=== PATIENT | female | born 1945 | race Caucasian/White ===

== ENCOUNTER 2018-09-10 18:49 | Emergency (ER) | payer MEDICARE, OTHER ==
[2018-09-10 19:10] VITALS: BP 118/89; PULSE 94; TEMP 98.1; BMI 19.7
[2018-09-10 20:45] LABS: EOS % 2.1 % (0-4.5); HEMATOCRIT 40.1 % (32.4-45.2); HEMOGLOBIN 13.4 GM/dl (10.7-15.3); LYMPH % 25.8 % (8-40); MCH 33.3 pg (25.7-33.7); MCHC 33.4 g/dl (32.0-36.0); MEAN CELL VOLUME 99.6 fl (80-96); MEAN PLT VOLUME 7.7 fl (7.5-11.1); NEUT % 64.1 % (42.8-82.8); PLATELET COUNT 290 K/MM3 (134-434); RBC 4.03 M/mm3 (3.60-5.2); RDW 12.7 % (11.6-15.6); WHITE BLOOD COUNT 7.7 K/mm3 (4.0-10.8)
[2018-09-10 21:39] LABS: ALBUMIN 4.2 g/dl (3.4-5.0); BILIRUBIN,TOTAL 0.7 mg/dl (0.2-1); CALCIUM 9.6 mg/dl (8.5-10); CREATININE 0.7 mg/dl (0.55-1.3); POTASSIUM 4.5 mmol/L (3.5-5.1); TOT PROT 7.4 g/dl (6.4-8.2)
[2018-09-10] MEDS ORDERED: VANCOMYCIN 1,000 MG in DEXTROSE 5%-WATER - 250 ML IVPB ONE (21:43)
[2018-09-10] MEDS ORDERED: VANCOMYCIN 1,000 MG VIAL (RESTRICTED TO ID ONLY) ONE (21:50)
--- NOTE | 2018-09-11 01:38 | PDOC ---
Documentation entered by Ruby Landers SCRIBE, acting as scribe for Sarita Sam MD. Sarita Sam MD: This documentation has been prepared by the Leesa marquez Mackenzie, SCRIBE, under my direction and personally reviewed by me in its entirety. I confirm that the documentation accurately reflects all work , treatment, procedures, and medical decision making performed by me. History of Present Illness - General Chief Complaint: Redness To Affected Area Stated Complaint: LEFT 2ND TOE PAIN Time Seen by Provider: 09/10/18 19:16 History Source: Patient - History of Present Illness Initial Comments: The patient is a 72 year old female, with a significant PMH of anxiety and depression who presents to the emergency department s/p interphalangeal joint arthrodesis or hammer toe surgery (08/25). Patient reports that she was unaware she had to remove her boot while sleeping after the surgery and when she went to her surgeon 5 days after the surgery she was told her toe was infected and she was prescribed an antibiotic. Patient went back to the surgeon s office 4 days ago and her antibiotic prescription was increased to a stonger antibiotic (augmentin) however she states swelling and pain have not been alleviated. Patient notes she ices her foot at all times of the day and has seen no improvement in symptoms. The patient denies chest pain, shortness of breath, headache and dizziness. Denies fever, chills, nausea, vomiting, diarrhea and constipation. Denies dysuria, frequency, urgency and hematuria. Allergies: NKDA Past surgical history: Cervical spinal surgery (6 months ago) and left second toe surgery as noted above Social history: Patient admits alcohol use socially. PCP: Dr. Edwardo Zaman 09/10/18 21:13 Past History - Past Medical History Allergies/Adverse Reactions: Allergies Allergy/AdvReac Type Severity Reaction Status Date / Time No Known Allergies Allergy Verified 09/10/18 18:50 Home Medications: Ambulatory Orders Amoxicillin/Potassium Clav [Augmentin 500-125 Tablet] 1 each PO BID 09/10/18 Ascorbic Acid [Vitamin C] 1,000 mg PO DAILY 09/10/18 Calcium Carbonate [Calcium] 1,500 mg PO DAILY 09/10/18 Clindamycin HCl [Cleocin HCl] 300 mg PO QID #28 capsule 09/10/18 Cranberry 400 mg PO DAILY 09/10/18 Cyanocobalamin (Vitamin B-12) [Vitamin B12] 2,500 mcg PO DAILY 09/10/18 Diazepam [Valium] 10 mg PO ONCE 09/10/18 Fluoxetine HCl [Prozac] 10 mg PO DAILY 09/10/18 COPD: No Psychiatric Problems: Yes - Suicide/Smoking/Psychosocial Hx Smoking History: Never smoked Have you smoked in the past 12 months: No Information on smoking cessation initiated: No Hx Alcohol Use: No Drug/Substance Use Hx: No Review of Systems - Review of Systems Able to Perform ROS?: Yes Comments:: GENERAL/CONSTITUTIONAL: No fever or chills. No weakness. HEAD, EYES, EARS, NOSE AND THROAT: No change in vision. No ear pain or discharge. No sore throat. CARDIOVASCULAR: No chest pain or shortness of breath. RESPIRATORY: No cough, wheezing, or hemoptysis. GASTROINTESTINAL: No nausea, vomiting, diarrhea or constipation. GENITOURINARY: No dysuria, frequency, or change in urination. MUSCULOSKELETAL: (+)Swelling of left second toe. (+)Pain at left second toe joint. No neck or back pain. SKIN: No rash NEUROLOGIC: No headache, vertigo, loss of consciousness, or change in strength/ sensation. ENDOCRINE: No increased thirst. No abnormal weight change. HEMATOLOGIC/LYMPHATIC: No anemia, easy bleeding, or history of blood clots. ALLERGIC/IMMUNOLOGIC: No hives or skin allergy. 09/10/18 20:09 *Physical Exam - Vital Signs Last Vital Signs Temp Pulse Resp BP Pulse Ox 98.1 F 94 H 20 118/89 96 09/10/18 18:50 09/10/18 18:50 09/10/18 18:50 09/10/18 18:50 09/10/18 18:50 - Physical Exam Comments: GENERAL: Awake, alert, and fully oriented, in no acute distress HEAD: No signs of trauma EYES: PERRLA, EOMI, sclera anicteric, conjunctiva clear ENT: Auricles normal inspection, hearing grossly normal, nares patent, oropharynx clear without exudates. Moist mucosa NECK: Normal ROM, supple, no lymphadenopathy, JVD, or masses LUNGS: Breath sounds equal, clear to auscultation bilaterally. No wheezes, and no crackles HEART: Regular rate and rhythm, normal S1 and S2, no murmurs, rubs or gallops ABDOMEN: Soft, nontender, normoactive bowel sounds. No guarding, no rebound. No masses EXTREMITIES: (+)Left second toe markedly edematous and erythematous with surgical incision on medial aspect. (+)Left second toe moderately tender to palpation without open wound, purulent discharge, or fluctuance. (+)Skin of left second toe slightly warm to touch. (+) Pain on passive and active movement of left second toe. No lymphangitic streaking no edema tenderness or erythema of remainder of left foot . No left sided palpable inguinal lymphadenopathy. All other joints have normal range of motion, no edema. No clubbing or cyanosis. No cords, erythema, or tenderness of other joints. NEUROLOGICAL: Cranial nerves II through XII grossly intact. Normal speech. SKIN: Warm, Dry, normal turgor, no rashes or lesions noted. 09/10/18 20:30 ED Treatment Course - LABORATORY CBC & Chemistry Diagram: 09/10/18 19:56 09/10/18 21:00 Medical Decision Making - Medical Decision Making As noted above, this 72-year-old woman no previous history of cellulitis/wound infection or other acute medical problems, presents with persistent edema/pain/ erythema/increased warmth of left second toe after podiatric surgery 16 days ago. The patient has been on oral antibiotics for approximately 10 days without improvement. She has not had any systemic symptoms of fever, etc. but presents tonight because of worsening pain in the toe. No history of MRSA or other resistant organism colonization or infection. Exam as noted. CBC/chemistry profile/blood cultures sent. Chest x-ray and left foot x-ray performed. Chest x-ray preliminary reading by me: No evidence of acute disease Left foot x-ray eliminator reading by Imaging conductor sleeping car: Large lucency seen in phalanx,middle phalanx 2nd toe. Post surgical changes versus osteomyelitis ( cannot be distinguished on plain film at this time). No other abnormality seen Laboratory evaluation essentially normal. Patient given a gram of vancomycin IV for coverage of possible MRSA. 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 Admission for IV antibiotics planned and patient agreed. While admission was being arranged, patient decided that she did not want to be admitted. The risk of progressive soft tissue infection and possible bone infection was explained to the patient including possibility of development of sepsis, generalized infection and possible amputation or . Patient understood complications and signed out AGAINST MEDICAL ADVICE Outpatient oral antibiotics changed from Augmentin to Clindamycin(300mg 4 X day) to cover MRSA. The patient will followup with her PMD, Dr Zaman and return to ER as needed *DC/Admit/Observation/Transfer Diagnosis at time of Disposition: Cellulitis of left toe - Discharge Dispostion Disposition: AGAINST MEDICAL ADVICE Condition at time of disposition: Stable - Prescriptions Prescriptions: Clindamycin HCl [Cleocin HCl] 300 mg PO QID #28 capsule - Referrals - Patient Instructions Additional Instructions: stop augmentin begin clindamycin as prescribed return to ER if pain/swelling worsens or you develop fever - Post Discharge Activity
== END 2018-09-11 00:01 | disposition left against medical advice (07) ==
LOC: FER 18:49
DX: L03.032 Cellulitis of left toe (principal); F99 Mental disorder, not otherwise specified; F41.8 Other specified anxiety disorders
CPT/HCPCS: 36415; 71046-TC-FY; 73630-TC-LT; 80053; 85025; 87040; 99282-25